=== PATIENT | male | born 1990 | race Caucasian/White ===

== ENCOUNTER 2024-12-02 06:00 | Inpatient (IN) | payer BC ==
[~2024-12-02] VITALS: Ht 193 cm; Wt 160.0 kg
[2024-12-02] MEDS ORDERED: Aspir 8181 MG PO (06:17)
[2024-12-02 07:00] LABS: Alanine Aminotransfer (ALT/SGP 28 U/L (12-78); Albumin, Blood 3.8 g/dL (3.4-5.0); Albumin/Globulin Ratio 1.1 (0.8-1.8); Alk Phos 71 U/L (50-136); Anion Gap 8 mmol/L (3-11); Aspartate Aminotrans (AST/SGOT 17 U/L (12-37); Bilirubin, Total 0.4 mg/dL (0.1-1.0); Blood Urea Nitrogen 16 mg/dL (8-24); Bun/Creatinine Ratio 17.4 (12.0-20.0); CO2, Blood 25 mmol/L (21-32); Calcium, Blood 8.8 mg/dL (8.5-10.1); Chloride, Blood 109 mmol/L (98-108); Creatinine, Blood 0.92 mg/dL (0.60-1.20); Ethanol (Alcohol), Blood, Med <3 mg/dL; Globulin, Blood 3.6 g/dL (2.2-4.0); Glomerular Filtration Rate 111 (60-); Glucose, Blood 111 mg/dL (70-99); Potassium, Blood 3.6 mmol/L (3.5-5.5); Sodium, Blood 138 mmol/L (136-145); Total Protein, Blood 7.4 g/dL (6.4-8.2)
[2024-12-02 07:02] LABS: BASOPHILS ABSOLUTE AUTO 0.05 K/mm3 (0.00-0.23); BASOPHILS PERCENT AUTO 1 % (0-2); EOSINOPHILS PERCENT AUTO 4 % (0-6); Hematocrit 41.4 % (37.0-53.0); IMMATURE GRAN ABSOLUTE AUTO 0.01 K/mm3 (0.00-0.10); IMMATURE GRAN PERCENT AUTO 0 % (0-1); LYMPHOCYTES ABSOLUTE AUTO 4.89 K/mm3 (0.84-5.20); LYMPHOCYTES PERCENT AUTO 52 % (21-46); MONOCYTES PERCENT AUTO 7 % (4-13); Mean Corpuscular HGB 29.5 pg (26.0-34.0); Mean Corpuscular HGB Conc 33.8 g/dL (31.5-36.5); Mean Corpuscular Volume 87 fL (80-100); Mean Platelet Volume 9.3 fL (9.1-12.4); NEUTROPHILS ABSOLUTE AUTO 3.42 K/mm3 (1.96-9.15); NEUTROPHILS PERCENT AUTO 36 % (41-73); Platelet Count 273 K/mm3 (150-400); RDW Coefficient Variation 13.6 % (11.7-14.2); RDW Standard Deviation 43.6 fL (35.1-46.3); Red Blood Cell Count 4.74 M/mm3 (4.30-5.90); White Blood Cell Count 9.47 K/mm3 (4.00-11.30)
[2024-12-02] MEDS ORDERED: Clopidogrel Bisulfate 75 MG Tab PO ONE (09:25)
[2024-12-02] MEDS ORDERED: Acetaminophen 500 MG Tab PO PRN (10:35)
[2024-12-02 10:40] LABS: U Amphetamine Screen Not Detected; U Barbituate Screen Not Detected; U Benzodiazapine Screen Not Detected; U Buprenorphine Screen Not Detected; U Cannabinoids Screen Not Detected; U Cocaine Screen Not Detected; U Methadone Screen Not Detected; U Methamphetamine Screen Not Detected; U Opiates Screen Not Detected; U Oxycodone Screen Not Detected; U Phencyclidine Screen Not Detected
[2024-12-02] MEDS ORDERED: Polyethylene Glycol 3350 17 gm PO PRN (10:40)
[2024-12-02 10:45] LABS: International Normalized Ratio 0.96; Prothrombin Time Results 10.6 Sec (9.7-11.5)
[2024-12-02 12:42] VITALS: BP 133/78
[2024-12-02] MEDS ORDERED: ZEPBOUND2.5 MG/0.1 SC (12:58)
[2024-12-02 14:58] VITALS: BP 132/88
[2024-12-02 19:11] VITALS: BP 111/62
[2024-12-03] VITALS (7 sets, daily range): BP systolic 111–142; BP diastolic 63–94
--- NOTE | 2024-12-03 04:04 | NUR ---
SHIFT SUMMARY PATIENT HAD NO ACUTE CHANGES. ALERT ORIENTED AND SBA TO BR. DENIES CHEST PAIN, SOB, AND N/V. VSS/AFEBRILE. PIV INTACT. TELE MONITOR NSR 63. COOPERATIVE WITH CARE. WAITING FOR MRI. RESTED/SLEPT MOST OF THE NIGHT. CALL LIGHT IN REACH. BED IN LOWEST POSITION. WILL CONTINUE TO MONITOR UNTIL DAY SHIFT NURSE ASSUMES CARE.
[2024-12-03] MEDS ORDERED: Atorvastatin 40 MG Tab PO SCH (09:00)
[2024-12-03] MEDS ORDERED: Clopidogrel Bisulfate 75 MG Tab PO SCH (09:00)
[2024-12-03] MEDS ORDERED: Enoxaparin 40 MG/0.4 ML SYR SC SCH (09:00)
[2024-12-03] MEDS ORDERED: Aspirin 81 MG Chew PO SCH (09:00)
[2024-12-03] MEDS ORDERED: Nicotine 21 MG PATCH TOP PRN (18:05)
[2024-12-03] MEDS ORDERED: Nicotine Polacrilex 2 MG Gum PO PRN (18:05)
--- NOTE | 2024-12-03 18:23 | NUR ---
NO MRI AVAILABLE, SHOWERED, AMBULATED IN HALLS WITH STAND BY AND GAIT BELT. PATIENT REPORTS NOT FEELING SO DRUNK. STARTING NICOTINE GUM AND PATCHES, PLEASANT TO CARE, FORGETFUL AT TIMES, CALL LIGHT WITH IN REACH
--- NOTE | 2024-12-04 04:09 | NUR ---
SHIFT SUMMARY PATIENT HAD NO ACUTE CHANGES. ALERT ORIENTED AND INDEPENDENT IN ROOM. DENIES CHEST PAIN, SOB, AND N/V. PIV INTACT. TELE MONITOR NSR 73. SLEPT MOST OF THE SHIFT. CALL LIGHT IN REACH. BED IN LOWEST POSITION. WILL CONTINUE TO MONITOR UNTIL DAY SHIFT NURSE ASSUMES CARE.
[2024-12-04 04:14] VITALS: BP 102/62
[2024-12-04 09:06] VITALS: BP 118/75
--- NOTE | 2024-12-04 10:53 | NUR ---
OUTPATIENT MRI CALL TO [facility]. PATIENT SCHEDULED FOR MRI ON Wednesday12/06/24 AT 09:30 CHECK IN FOR 10:00 AM MRI. PATIENT UPDATED.
[2024-12-04] MEDS ORDERED: CLOP75 PO (14:39)
--- NOTE | 2024-12-04 15:23 | NUR ---
D/C SUMMARY: PATIENT DISCHARGED THIS SHIFT. D/C INSTRUCTIONS GONE OVER WITH PATIENT WHO STATED UNDERTSANDING, HARD COPY FOR MRI PLACED IN D/C FOLDER AND GIVEN TO PATIENT. PATIENT DECLINED W/C. PATIENT WAS ESCORTED OUT VIA NURSE W/ STEADY GAIT OBSERVED.
== END 2024-12-04 15:08 | disposition home or self-care (01) | DRG 92 ==
LOC: ER 06:00 → MEDS 10:32
PROVIDERS: Student in an Organized Health Care Education/Training Program; ADMIT Internal Medicine
DX: R27.0 Ataxia, unspecified (principal); Q21.12 Patent foramen ovale; Z86.73 Personal history of transient ischemic attack (TIA), and cerebral infarction without residual deficits; Z79.82 Long term (current) use of aspirin
CPT/HCPCS: 70450; 70496; 70498; 80053; 80320; 85025; 85610; 85730; 93005; 93010; 97116; 97161; 97530; 99285-25; A9270; J1650; Q9967